=== PATIENT | female | born 1930 | race Caucasian/White ===

== ENCOUNTER → 2017-12-12 | Outpatient (CLI) | payer MEDICARE, OTHER ==
--- NOTE | 2017-12-12 12:52 | CT ---
EXAMINATION TYPE: CT chest wo con DATE OF EXAM: 12/12/2017 COMPARISON: 03/19/2016 HISTORY: pulmonary fibrosis, weight loss CT DLP: 86.8 mGycm. Automated Exposure Control for Dose Reduction was Utilized. TECHNIQUE: CT scan of the thorax is performed without IV contrast. The patient could not tolerate pr one position and only a supine high resolution CT performed. FINDINGS: LUNGS: There is diffuse interlobular septal thickening. Extensive emphysematous changes are seen with large bulla involving the periphery of the right upper lobe occupying the majority of the right lowe r lobe and middle lobe compatible honeycombing. Similar findings are noted on the left but to a lesse r extent The heart is markedly enlarged. Atherosclerotic change of the aorta. Tiny pericardial effusion noted. Large hiatal hernia noted. There is a scoliosis and multilevel degenerative disc disease with facet arthropathy. No pneumothorax. There is a 3 cm area of abnormal density within the left lower lobe axial image 19. There are at least 3 less than 5 mm nodules within the left lung. There is enlarged caliber to the main right and left pulmonary arteries at 2.8 and 2.5 cm, respective ly, suggesting underlying pulmonary arterial hypertension. There is a calcified density in the left upper quadrant which is only partially included on exam demo nstrating rim calcification could potentially be related to spleen or splenic artery.. Assessment for adenopathy limited by the lack of contrast and high-resolution technique. IMPRESSION: 1. Extensive honeycombing findings suggestive of advanced pulmonary fibrosis and chronic lung disease findings are progressed from previous exam. 2. There is a 3 cm irregular density seen within the left lower lobe on axial image 19. Would recomme nd a standard CT of the chest to determine if this is related infiltrate or neoplasm. 3. 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
== END | disposition home or self-care (01) ==
LOC: RADCTMAIN 11:58
PROVIDERS: ATTEND Internal Medicine
DX: J98.4 Other disorders of lung (principal)
CPT/HCPCS: 71250

== ENCOUNTER 2018-01-14 12:54 | Inpatient (IN) | payer MEDICARE, OTHER ==
[2018-01-14 14:00] LABS: Basophils % (A) 0 %; Eosinophils % (A) 0 %; HCT 48.6 % (34.0-46.0); HGB 15.8 gm/dL (11.4-16.0); Lymphocytes # (A) 0.7 k/uL (1.0-4.8); Lymphocytes % (A) 7 %; MCH 30.2 pg (25.0-35.0); MCHC 32.6 g/dL (31.0-37.0); MCV 92.7 fL (80.0-100.0); Mean Platelet Volume 7.5; Monocytes # (A) 0.4 k/uL (0-1.0); Monocytes % (A) 5 %; Neutrophils # (A) 8.4 k/uL (1.3-7.7); Neutrophils % (A) 87 %; Platelet Count 232 k/uL (150-450); RBC 5.24 m/uL (3.80-5.40); RDW 13.1 % (11.5-15.5); WBC 9.6 k/uL (3.8-10.6)
[2018-01-14 14:10] LABS: Albumin 3.9 g/dL (3.5-5.0); Calcium 10.3 mg/dL (8.4-10.2); Magnesium 2.2 mg/dL (1.6-2.3); Potassium 4.4 mmol/L (3.5-5.1); Total Bilirubin 0.4 mg/dL (0.2-1.3); Total Protein 8.3 g/dL (6.3-8.2)
[2018-01-14 14:23] LABS: Partial Thromboplastin Time 22.4 sec (22.0-30.0); Prothrombin Time 10.2 sec (9.0-12.0)
--- NOTE | 2018-01-14 14:33 | XR ---
EXAMINATION TYPE: XR chest 2V DATE OF EXAM: 01/14/2018 COMPARISON: CT 12/12/2017 and 03/19/2016 HISTORY: 79-year-old female with chest pain and shortness of breath, history of end-stage pulmonary f ibrosis TECHNIQUE: AP and lateral views FINDINGS: Dextro convex scoliosis. Heart margins are obscured by adjacent pleural parenchymal disease. Severe c onfluent reticular densities throughout the right lung and within the mid to lower left lung aerated overall appearance is worsened from the surveying or spatial science technician image of 03/19/2016 and similar to possibly slightly wor sened from 12/12/2017 as well. Retrocardiac lucency suggests large hiatal hernia. IMPRESSION: 1. Findings in keeping with the patient's known advanced pulmonary fibrosis, asymmetrically right gre ater than left. 2. Findings have progressed from 03/19/2016 and are stable to slightly progressed from 12/12/2017.
[2018-01-14] MEDS ORDERED: NALOXONE 0.4 MG/ML 1 ML VIAL IV PRN ×2 (15:18→21:49)
--- NOTE | 2018-01-14 15:18 | ED ---
Weakness HPI - General Chief complaint: Weakness Stated complaint: SOB Time Seen by Provider: 01/14/18 13:04 Source: patient Mode of arrival: wheelchair Limitations: physical limitation - History of Present Illness Initial comments: Patient presents with weakness. She has shortness of breath. She has end- stage cystic fibrosis. She denies any nausea or vomiting. She has no chest pain or pressure. She has no headache. She has no focal weakness. Nothing makes her symptoms better or worse. She has taken no medication for this. She does not have any recent travel or sick contacts. - Related Data Home Medications Medication Instructions Recorded Confirmed Calcium Carbonate [Calcium] 600 mg PO DAILY 01/14/18 01/14/18 Cholecalciferol [Vitamin D3] 1,000 unit PO DAILY 01/14/18 01/14/18 L.acidoph,Paracasei, B.lactis 1 cap PO Q48H 01/14/18 01/14/18 [Probiotic] Levothyroxine Sodium [Levoxyl] 100 mcg PO DAILY 01/14/18 01/14/18 Magnesium Oxide [Mag-Ox] 400 mg PO AC-SUPPER 01/14/18 01/14/18 Megestrol [Megace] 400 mg PO DAILY@1200 01/14/18 01/14/18 Menthol/Zinc Oxide [Calmoseptine 1 applic TOPICAL QID 01/14/18 01/14/18 Ointment] N-Ac 600mg 600 mg PO TID 01/14/18 01/14/18 Naproxen Sodium [Aleve] 220 mg PO BID PRN 01/14/18 01/14/18 Pulocare Diet Supplement 180 ml PO AC-TID 01/14/18 01/14/18 cycloSPORINE 0.05% OPHTH SOLN 1 drop BOTH EYES BID 01/14/18 01/14/18 [Restasis] predniSONE 10 mg PO DAILY 01/14/18 01/14/18 Allergies Allergy/AdvReac Type Severity Reaction Status Date / Time latex Allergy Rash/Hives Verified 01/14/18 14:05 nickel Allergy Rash/Hives Verified 01/14/18 14:05 Penicillins Allergy Rash/Hives Verified 01/14/18 13:58 Review of Systems ROS Statement: Those systems with pertinent positive or pertinent negative responses have been documented in the HPI. ROS Other: All systems not noted in ROS Statement are negative. 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 dughter staets that pt's doctor took her off of her bp, cholestrol, and potassium and water pill History of Any Multi-Drug Resistant Organisms: None Reported Past Surgical History: Heart Catheterization With Stent, Hysterectomy, Joint Replacement Additional Past Surgical History / Comment(s): partial throidectomy Past Psychological History: No Psychological Hx Reported Past Alcohol Use History: None Reported Past Drug Use History: None Reported General Exam Limitations: physical limitation General appearance: alert, in no apparent distress Head exam: Present: atraumatic, normocephalic, normal inspection Eye exam: Present: normal appearance, PERRL, EOMI. Absent: scleral icterus, conjunctival injection, periorbital swelling ENT exam: Present: normal exam, mucous membranes moist Neck exam: Present: normal inspection. Absent: tenderness, meningismus, lymphadenopathy Respiratory exam: Present: respiratory distress, wheezes. Absent: rales, rhonchi, stridor Cardiovascular Exam: Present: regular rate, normal rhythm, normal heart sounds. Absent: systolic murmur, diastolic murmur, rubs, gallop, clicks GI/Abdominal exam: Present: soft, normal bowel sounds. Absent: distended, tenderness, guarding, rebound, rigid Extremities exam: Present: normal inspection, full ROM, normal capillary refill. Absent: tenderness, pedal edema, joint swelling, calf tenderness Back exam: Present: normal inspection Neurological exam: Present: alert, oriented X3, CN II-XII intact Psychiatric exam: Present: normal affect, normal mood Skin exam: Present: warm, dry, intact, normal color. Absent: rash Course Vital Signs 01/14/18 01/14/18 01/14/18 12:54 14:10 14:52 Temperature 97.2 F L Pulse Rate 102 H 92 96 Respiratory 25 H 22 24 Rate Blood Pressure 154/104 123/75 138/83 O2 Sat by Pulse 100 99 99 Oximetry EKG Findings - EKG Comments: EKG Findings:: Twelve-lead EKG shows ventricular rate 99 bpm, normal [place] interval and QRS complex is, no ST elevation or depression, interpreted by me as normal sinus rhythm. Medical Decision Making - Medical Decision Making Patient complains of shortness of breath. She has end-stage cystic fibrosis. She cannot take care of herself. She is severely malnourished. She will be admitted to the hospital. - Lab Data Result diagrams: 01/14/18 13:25 01/14/18 13:25 Lab Results 01/14/18 01/14/18 01/14/18 Range/Units 13:25 13:25 13:25 WBC 9.6 (3.8-10.6) k/uL RBC 5.24 (3.80-5.40) m/uL Hgb 15.8 (11.4-16.0) gm/dL Hct 48.6 H (34.0-46.0) % MCV 92.7 (80.0-100.0) fL MCH 30.2 (25.0-35.0) pg MCHC 32.6 (31.0-37.0) g/dL RDW 13.1 (11.5-15.5) % Plt Count 232 (150-450) k/uL Neutrophils % 87 % Lymphocytes % 7 % Monocytes % 5 % Eosinophils % 0 % Basophils % 0 % Neutrophils # 8.4 H (1.3-7.7) k/uL Lymphocytes # 0.7 L (1.0-4.8) k/uL Monocytes # 0.4 (0-1.0) k/uL Eosinophils # 0.0 (0-0.7) k/uL Basophils # 0.0 (0-0.2) k/uL PT (9.0-12.0) sec INR (<1.2) APTT (22.0-30.0) sec Sodium 141 (137-145) mmol/L Potassium 4.4 (3.5-5.1) mmol/L Chloride 96 L (98-107) mmol/L Carbon Dioxide 33 H (22-30) mmol/L Anion Gap 12 mmol/L BUN 46 H (7-17) mg/dL Creatinine 0.84 (0.52-1.04) mg/dL Est GFR (CKD-EPI)AfAm 72 (>60 ml/min/1.73 sqM) Est GFR (CKD-EPI)NonAf 62 (>60 ml/min/1.73 sqM) Glucose 132 H (74-99) mg/dL Calcium 10.3 H (8.4-10.2) mg/dL Magnesium 2.2 (1.6-2.3) mg/dL Total Bilirubin 0.4 (0.2-1.3) mg/dL AST 28 (14-36) U/L ALT 26 (9-52) U/L Alkaline Phosphatase 83 (38-126) U/L Troponin I (0.000-0.034) ng/mL NT-Pro-B Natriuret Pep 1110 pg/mL Total Protein 8.3 H (6.3-8.2) g/dL Albumin 3.9 (3.5-5.0) g/dL 01/14/18 01/14/18 Range/Units 13:25 13:25 WBC (3.8-10.6) k/uL RBC (3.80-5.40) m/uL Hgb (11.4-16.0) gm/dL Hct (34.0-46.0) % MCV (80.0-100.0) fL MCH (25.0-35.0) pg MCHC (31.0-37.0) g/dL RDW (11.5-15.5) % Plt Count (150-450) k/uL Neutrophils % % Lymphocytes % % Monocytes % % Eosinophils % % Basophils % % Neutrophils # (1.3-7.7) k/uL Lymphocytes # (1.0-4.8) k/uL Monocytes # (0-1.0) k/uL Eosinophils # (0-0.7) k/uL Basophils # (0-0.2) k/uL PT 10.2 (9.0-12.0) sec INR 1.0 (<1.2) APTT 22.4 (22.0-30.0) sec Sodium (137-145) mmol/L Potassium (3.5-5.1) mmol/L Chloride (98-107) mmol/L Carbon Dioxide (22-30) mmol/L Anion Gap mmol/L BUN (7-17) mg/dL Creatinine (0.52-1.04) mg/dL Est GFR (CKD-EPI)AfAm (>60 ml/min/1.73 sqM) Est GFR (CKD-EPI)NonAf (>60 ml/min/1.73 sqM) Glucose (74-99) mg/dL Calcium (8.4-10.2) mg/dL Magnesium (1.6-2.3) mg/dL Total Bilirubin (0.2-1.3) mg/dL AST (14-36) U/L ALT (9-52) U/L Alkaline Phosphatase (38-126) U/L Troponin I 0.039 H* (0.000-0.034) ng/mL NT-Pro-B Natriuret Pep pg/mL Total Protein (6.3-8.2) g/dL Albumin (3.5-5.0) g/dL Disposition Clinical Impression: Weakness Disposition: ADMITTED IP TO THIS HOSP Condition: Fair Is patient prescribed a controlled substance at discharge?: No Referrals: Jorgito Martin MD [Primary Care Provider] - 1-2 days Time of Disposition: 15:18
[2018-01-14] MEDS: MAGNESIUM OXIDE 400 MG TAB PO SCH (18:52)
[2018-01-14] MEDS: cycloSPORINE 0.05% OPHTH 0.4 ML DROPERETTE BOTH EYES SCH (21:33)
[2018-01-14] MEDS ORDERED: CALCIUM CARBONATE 500 MG CHEWABLE PO PRN (21:49)
[2018-01-14] MEDS ORDERED: ONDANSETRON 4 MG/2 ML VIAL IVP PRN (21:49)
[2018-01-14] MEDS ORDERED: ALPRAZolam 0.25 MG TAB PO PRN (21:49)
[2018-01-14] MEDS ORDERED: MELATONIN 3 MG TABLET PO PRN (21:49)
[2018-01-14] MEDS ORDERED: ACETAMINOPHEN TAB 325 MG TAB PO PRN (21:49)
[2018-01-14] MEDS ORDERED: MAG HYDROX/AL HYDROX/SIMETH 30 ML CUP PO PRN (21:49)
[2018-01-14] MEDS ORDERED: IPRATROPIUM-ALBUTEROL 3 ML NEB INHALATION PRN (22:29)
--- NOTE | 2018-01-14 23:15 | HP ---
HISTORY AND PHYSICAL DATE OF ADMISSION: January 14, 2018. PRESENTING COMPLAINT: Short of breath. HISTORY OF PRESENTING COMPLAINT: A very pleasant 87-year-old patient of Dr. Martin and food sampler Dr. Zhu. Chronic stable medical conditions include hypertension, hyperlipidemia, osteoarthritis, coronary artery disease. Patient on home oxygen 4 L. Has pulmonary fibrosis. Over a period of time, patient progressively getting more and more short of breath. Minimal cough. No fever, chills. Appetite has been going down. Patient has lost about 50 pounds in the last 2 years. Uses a walker to get about. Exercise capacity is dwindling and gone down to bare minimum. Patient short of breath at rest, cannot speak in full sentences. Now admitted for the same. The patient's also admitted to the hospital. REVIEW OF SYSTEMS: Constitutional: Weak and tired, loss of appetite. Weight loss. HEENT: Decreased hearing. Respiratory as above. Cardiovascular: No chest pain. Gastrointestinal none. Genitourinary none. Musculoskeletal: Arthritic pain in many joints. Dermatological none. Hematologic, lymphatic none. Psychiatry anxiety. Neurological none. PAST MEDICAL HISTORY: Of hypertension, hyperlipidemia, osteoarthritis, pulmonary fibrosis, coronary artery disease, chronic hypoxic respiratory failure on home oxygen 4 L, osteoporosis. PAST SURGICAL HISTORY: Cardiac cath with stent, hysterectomy, joint replacement, bilateral partial thyroidectomy. SOCIAL HISTORY: No smoking, no alcohol. . Lives with her . FAMILY HISTORY: Reviewed, noncontributory to presentation. HOME MEDICATIONS: 1. Prednisone 10 mg p.o. daily. 2. Cyclosporine 0.05% 1 drop to both eyes b.i.d. 3. Pulmocare 3 times a day. 4. Aleve 220 mg b.i.d. p.r.n. 5. Calmoseptine topical q.i.d. 6. Megace 400 mg p.o. daily. 7. Magnesium oxide 400 mg p.o. with supper. 8. Levoxyl 100 mcg p.o. daily. 9. Probiotic 1 capsule p.o. q.48 hours. 10.Vitamin D3 1000 units p.o. daily. 11.Calcium 600 mg p.o. daily. ALLERGIES: TO LATEX, NICKEL, PENICILLIN. PHYSICAL EXAMINATION: Temperature 98, pulse 101, respiration 22, blood pressure 120/76, pulse ox 95% on 2 L. General: Very thin built, BMI 17.6. Sitting up, short of breath. Eyes: Conjunctivae pale. HEENT external appearance of nose and ears normal. Oral cavity normal. Neck JVD unable to assess. Mass not palpable. Respiratory effort increased. Accessory muscles are working. Patient not able to speak in full sentences. Lungs: Bilateral crackles. Diminished breath sounds. Cardiovascular 1st and second sounds normal. No edema. ABDOMEN: Soft, nontender. Liver and spleen not palpable. Lymphatics: No lymph node palpable in the neck and axilla. PSYCHIATRY: Alert and oriented times three. Mood and affect anxious-appearing. Neurological: Pupils equal. Cranial nerves grossly intact. Power and sensation grossly intact. Musculoskeletal: Diffuse wasting of muscles. Prominent bony prominences. INVESTIGATIONS: White count 9.6, hemoglobin 15.8, potassium 4.4, BUN 46, creatinine 0.84. Troponin 0.039, 0.030. Chest x-ray shows severe pulmonary fibrosis, more so on the right side with severe volume contracture. ASSESSMENT: 1. Acute on chronic examination of pulmonary fibrosis. 2. Chronic hypoxic respiratory failure from above. 3. Coronary artery disease prior history of stent. 4. Primary osteoarthritis multiple joints bilaterally. 5. Essential hypertension. 6. Hyperlipidemia. 7. Frailty due to multiple medical problems. 8. Troponin leak, likely from hemodynamic, the patient's presentation not compatible that with Cardiology presentation. PLAN: Patient is put on IV steroids, bronchodilators. Home medications are resumed. PT/OT. moving worker is consulted. The patient's CODE STATUS IS DNR. ADVANCED CARE PLANNING: The patient's end of life care was discussed with the patient. She understands her condition is progressive and she has been talking to her family. At this point, she wants to see if she can get a bit stronger. She understands the guarded prognosis. The patient's currently in the hospital. Will ask social worker psychiatric this aspect of the case was about 20 minutes in addition to the history and physical. MMODL / IJN: [id number] /
[2018-01-14] MEDS: methylPREDNISolone SOD SUCCI 40 MG/ML 1 ML VIAL IV SCH (23:19)
[2018-01-14] MEDS: MENTHOL-ZINC OXIDE OINT 113 GM TUBE TOPICAL SCH (23:19)
[2018-01-15] MEDS ORDERED: IPRATROPIUM-ALBUTEROL 3 ML NEB INHALATION SCH
[2018-01-15] MEDS: LEVOTHYROXINE 100 MCG TAB PO SCH (06:07)
[2018-01-15 06:09] LABS: Glucose,Whole Blood 139 mg/dL (75-99)
[2018-01-15] MEDS: IPRATROPIUM-ALBUTEROL 3 ML NEB INHALATION SCH ×4 (08:16→19:38)
[2018-01-15] MEDS ORDERED: predniSONE 10 MG TAB PO SCH (09:00)
[2018-01-15] MEDS: methylPREDNISolone SOD SUCCI 40 MG/ML 1 ML VIAL IV SCH ×2 (09:03→15:22)
[2018-01-15] MEDS: ENOXAPARIN 40 MG/0.4 ML SYRINGE SQ SCH (09:03)
[2018-01-15] MEDS: cycloSPORINE 0.05% OPHTH 0.4 ML DROPERETTE BOTH EYES SCH ×2 (09:04→20:37)
[2018-01-15] MEDS: MENTHOL-ZINC OXIDE OINT 113 GM TUBE TOPICAL SCH ×3 (09:04→17:56)
[2018-01-15 11:35] VITALS: BMI 17.4
[2018-01-15 12:01] LABS: Glucose,Whole Blood 350 mg/dL (75-99)
--- NOTE | 2018-01-15 12:42 | P.CRDCN ---
History of Present Illness Consult date: 01/15/18 Requesting physician: Pk Toro Reason for Consult (text): positive troponin Chief complaint: weakness, shortness of breath History of present illness: This is a pleasant 87-year-old female patient who follows with Dr. Brito in the office. She has a known history of coronary artery disease with prior stent placement in 2008, hypertension, hyperlipidemia and end-stage pulmonary fibrosis. She presented to the emergency department with complaints of overall not feeling well, weakness and shortness of breath. She is feeling it difficult to take care of herself at home and her activity level has diminished significantly. Upon admission, chest x-ray showed findings consistent with patient's known advanced pulmonary fibrosis with the right greater than left with findings stable to slightly progressed from 12/12/2017. Laboratory values showed a troponin initially to be mildly elevated at 0.039 with subsequent troponins of 0.030 and 0.032. NT proBNP is normal at 1110. Upon examination, patient is resting comfortably in bed. She is visibly short of breath with talking. She's had no complaints of chest discomfort, palpitations, dizziness, lightheadedness or edema. 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 dughter staets that pt's doctor took her off of her bp, cholestrol, and potassium and water pill, hx of anemia in past took iron supplement.scoliosis. lower bridge, per previous charting it listed chf- pt unable to verify History of Any Multi-Drug Resistant Organisms: None Reported Past Surgical History: Heart Catheterization With Stent, Hysterectomy, Joint Replacement Additional Past Surgical History / Comment(s): partial throidectomy, vein stripping, rectocele repair, partial hysterectomy, rt knee replacment, rt shoulder arthroscopy/tendon repair, terra cataracts, colonoscopy/egd, Past Anesthesia/Blood Transfusion Reactions: No Reported Reaction Date of Last Stent Placement:: unk Past Psychological History: No Psychological Hx Reported Additional Psychological History / Comment(s): lives wih spouse. has home 02, walker, w/c able to walk with walker and assist very short distance. pt gave example "from bed to bs" Smoking Status: Never smoker Past Alcohol Use History: None Reported Past Drug Use History: None Reported - Past Family History Mother Family Medical History: Cancer, Osteoarthritis (OA) Additional Family Medical History / Comment(s): kidney cancer Father Family Medical History: Osteoarthritis (OA) Medications and Allergies Home Medications Medication Instructions Recorded Confirmed Type Calcium Carbonate [Calcium] 600 mg PO DAILY 01/14/18 01/14/18 History Cholecalciferol [Vitamin D3] 1,000 unit PO DAILY 01/14/18 01/14/18 History L.acidoph,Paracasei, B.lactis 1 cap PO Q48H 01/14/18 01/14/18 History [Probiotic] Levothyroxine Sodium [Levoxyl] 100 mcg PO DAILY 01/14/18 01/14/18 History Magnesium Oxide [Mag-Ox] 400 mg PO AC-SUPPER 01/14/18 01/14/18 History Megestrol [Megace] 400 mg PO DAILY@1200 01/14/18 01/14/18 History Menthol/Zinc Oxide [Calmoseptine 1 applic TOPICAL QID 01/14/18 01/14/18 History Ointment] N-Ac 600mg 600 mg PO TID 01/14/18 01/14/18 History Naproxen Sodium [Aleve] 220 mg PO BID PRN 01/14/18 01/14/18 History Pulocare Diet Supplement 180 ml PO AC-TID 01/14/18 01/14/18 History cycloSPORINE 0.05% OPHTH SOLN 1 drop BOTH EYES BID 01/14/18 01/14/18 History [Restasis] predniSONE 10 mg PO DAILY 01/14/18 01/14/18 History Allergies Allergy/AdvReac Type Severity Reaction Status Date / Time latex Allergy Rash/Hives Verified 01/14/18 14:05 nickel Allergy Rash/Hives Verified 01/14/18 14:05 Penicillins Allergy Rash/Hives Verified 01/14/18 13:58 Physical Exam Vitals: Vital Signs Temp Pulse Pulse Resp BP BP Pulse Ox 01/15/18 12:13 92 01/15/18 12:04 96 01/15/18 09:10 104 H 20 01/15/18 09:09 97.5 F L 104 H 14 89/57 96 01/15/18 08:29 100 01/15/18 08:20 94 93 L 01/15/18 04:00 96.6 F L 77 20 118/75 97 01/15/18 00:00 96.9 F L 82 22 113/72 98 01/14/18 20:00 98.4 F 92 22 120/62 97 01/14/18 18:07 98.0 F 111 H 22 126/76 95 01/14/18 17:16 96.9 F L 98 19 116/70 97 01/14/18 16:17 99 18 133/70 99 01/14/18 14:52 96 24 138/83 99 01/14/18 14:10 92 22 123/75 99 01/14/18 12:54 97.2 F L 102 H 25 H 154/104 100 Intake and Output 01/14/18 01/15/18 01/15/18 22:59 06:59 14:59 Intake Total 340 360 Output Total 200 200 Balance 140 -200 360 Intake: Oral 340 360 Output: Urine 200 200 Other: Voiding Method Diaper Diaper Diaper Incontinent Incontinent Incontinent # Voids 1 1 Weight 89.5 kg 40.597 kg PHYSICAL EXAMINATION: HEENT: Head is atraumatic, normocephalic. Pupils equal, round. Neck is supple. There is no elevated jugular venous pressure. HEART EXAMINATION: Heart sounds regular, S1 and S2 normal. No murmur or gallop heard. CHEST EXAMINATION: Lungs reveal significant dry crackles throughout. No chest wall tenderness is noted on palpation or with deep breathing. ABDOMEN: Soft, nontender. Bowel sounds are heard. No organomegaly noted. EXTREMITIES: 2+ peripheral pulses with no evidence of peripheral edema and no calf tenderness noted. NEUROLOGIC patient is awake, alert and oriented x3. . Results 01/14/18 13:25 01/14/18 13:25 Cardiac Enzymes 01/14/18 01/14/18 01/14/18 Range/Units 13:25 13:25 19:48 AST 28 (14-36) U/L Troponin I 0.039 H* 0.030 (0.000-0.034) ng/mL 01/15/18 Range/Units 01:24 AST (14-36) U/L Troponin I 0.032 (0.000-0.034) ng/mL Coagulation 01/14/18 Range/Units 13:25 PT 10.2 (9.0-12.0) sec APTT 22.4 (22.0-30.0) sec CBC 01/14/18 Range/Units 13:25 WBC 9.6 (3.8-10.6) k/uL RBC 5.24 (3.80-5.40) m/uL Hgb 15.8 (11.4-16.0) gm/dL Hct 48.6 H (34.0-46.0) % Plt Count 232 (150-450) k/uL Comprehensive Metabolic Panel 01/14/18 Range/Units 13:25 Sodium 141 (137-145) mmol/L Potassium 4.4 (3.5-5.1) mmol/L Chloride 96 L (98-107) mmol/L Carbon Dioxide 33 H (22-30) mmol/L BUN 46 H (7-17) mg/dL Creatinine 0.84 (0.52-1.04) mg/dL Glucose 132 H (74-99) mg/dL Calcium 10.3 H (8.4-10.2) mg/dL AST 28 (14-36) U/L ALT 26 (9-52) U/L Alkaline Phosphatase 83 (38-126) U/L Total Protein 8.3 H (6.3-8.2) g/dL Albumin 3.9 (3.5-5.0) g/dL Current Medications Generic Name Dose Route Start Last Admin Trade Name Freq PRN Reason Stop Dose Admin Acetaminophen 650 mg 01/14/18 21:49 Tylenol Tab PO Q6HR PRN Mild Pain or Fever > 100.5 Al Hydroxide/Mg Hydroxide 15 ml 01/14/18 21:49 Maalox PO Q6HR PRN Indigestion Albuterol/Ipratropium 3 ml 01/15/18 08:00 01/15/18 12:02 Duoneb 0.5 Mg-3 Mg/3 Ml Soln INHALATION 3 ml RT-QID EVAN Administration Albuterol/Ipratropium 3 ml 01/14/18 22:29 Duoneb 0.5 Mg-3 Mg/3 Ml Soln INHALATION RT-Q2H PRN Shortness Of Breath Or Wheezing Alprazolam 0.25 mg 01/14/18 21:49 Xanax PO Q6HR PRN Anxiety Calamine/Phenol 1 applic 01/14/18 22:00 01/15/18 09:04 Risamine Oint TOPICAL 1 applic QID [facility] Administration Calcium Carbonate/Glycine 1,000 mg 01/14/18 21:49 Tums PO Q4HR PRN Dyspepsia Cyclosporine 1 drops 01/14/18 21:00 01/15/18 09:04 Restasis 0.05% Ophth Soln BOTH EYES 1 drops BID [facility] Administration Enoxaparin Sodium 40 mg 01/15/18 09:00 01/15/18 09:03 Lovenox SQ 40 mg DAILY EVAN Administration Insulin Aspart 0 unit 01/15/18 12:30 Novolog SQ ACHS [facility] Protocol Levothyroxine Sodium 100 mcg 01/15/18 06:30 01/15/18 06:07 Synthroid PO 100 mcg 0630 [facility] Administration Magnesium Oxide 400 mg 01/14/18 17:30 01/14/18 18:52 Mag-Ox PO 400 mg AC-SUPPER [facility] Administration Megestrol Acetate 400 mg 01/15/18 12:00 Megace PO DAILY@1200 [facility] Melatonin 3 mg 01/14/18 21:49 Melatonin PO HS PRN Insomnia Methylprednisolone Sodium Succinate 40 mg 01/14/18 22:00 01/15/18 09:03 Solu-Medrol IV 40 mg Q8HR [facility] Administration Naloxone HCl 0.2 mg 01/14/18 21:49 Narcan IV Q2M PRN Opioid Reversal Ondansetron HCl 4 mg 01/14/18 21:49 Zofran IVP Q8HR PRN Nausea And Vomiting Intake and Output 01/14/18 01/15/18 01/15/18 22:59 06:59 14:59 Intake Total 340 360 Output Total 200 200 Balance 140 -200 360 Intake: Oral 340 360 Output: Urine 200 200 Other: Voiding Method Diaper Diaper Diaper Incontinent Incontinent Incontinent # Voids 1 1 Weight 89.5 kg 40.597 kg Patient Weight 01/16/18 06:59 Weight 40.597 kg 01/14/18 13:25 01/14/18 13:25 Assessment and Plan Assessment: #1 pulmonary fibrosis #2 history of CAD with prior stenting #3 hypertension #4 hyperlipidemia #5 mild troponin leak, not consistent with acute myocardial injury Plan: From Cardiology's perspective, we do not recommend further cardiac workup. We will follow the patient on an as-needed basis. Please do not hesitate to contact us with questions. PROFESSOR OF SOCIOLOGY note has been reviewed, I agree with a documented findings and plan of care. Patient was seen and examined.
[2018-01-15] MEDS: MEGESTROL 400 MG/10 ML CUP PO SCH (12:48)
[2018-01-15] MEDS: INSULIN ASPART 100 UNIT/ML 1 ML 10 ML VIAL SQ SCH ×3 (12:51→21:16)
--- NOTE | 2018-01-15 12:53 | P.PN ---
Progress Note - Text This is an addendum to the dictated cardiology consultation. The patient has a known history of severe pulmonary fibrosis, history of CAD status post stenting in 2008 who presents with progressive symptoms of dyspnea and fatigue. She has no chest discomfort, no dizziness or palpitations. Her lab data revealed minimal elevation of her troponin but no EKG changes. Her troponin elevation of her present a type II event. From the cardiac standpoint she is stable and I would not recommend any cardiac workup. Unfortunately the prognosis is quite guarded in view of the severe progressive pulmonary fibrosis we will see her on an as needed basis. Thank you for this consult.
--- NOTE | 2018-01-15 13:25 | P.CNPUL ---
History of Present Illness Consult date: 01/15/18 Reason for consult: dyspnea, hypoxemia, other (Pulmonary fibrosis) History of present illness: This is an 85-year-old female patient with known history of severe pulmonary fibrosis, UIP, treated with Pirfenedone, who has been developing progressive worsening in her pulmonary fibrosis and this was clear noted on recent evaluation recent CAT scan of the chest. The patient has UIP histology along with chronic honeycombing and traction bronchiectasis. She also has a hiatal hernia noted on previous CAT scans. The patient has been followed up in our office on a care of Dr. Darden. She has chronic hypoxic respiratory failure and oxygen requirements progressively have been going up and she is currently on 4 of oxygen nasal cannula. The patient was getting progressive shortness of breath or point where she was unable to perform activities of daily life. She lives with her children and her is currently also ill. She was also being considered for half-way placement knowing that she is at a condition where she cannot perform activities of daily today life without any help or assistance. She gets short of breath with limited amount of activity. She is also short of breath at rest. She has been losing weight and she recently she has lost approximately 12-15 pounds over the past 6 months. She has not been eating much. She continues to have shortness of breath and she is very much oxygen dependent. She is also on a low-dose prednisone 10 mg on a daily basis. No recent pneumonias. No altered mentation. No angina. No swelling lower extremities. CAT scan of the chest from November 2017 shows extensive honeycombing suggestive of advanced pulmonary fibrosis with chronic lung disease showing progression from the last examination. Review of Systems Constitutional: Reports daytime sleepiness, Reports fatigue, Reports lethargy, Reports poor appetite, Reports weakness, Reports weight loss Eyes: denies blurred vision, denies bulging eye, denies decreased vision Ears: deny: decreased hearing, ear discharge, earache Ears, nose, mouth and throat: Denies headache, Denies sore throat Cardiovascular: Reports decreased exercise tolerance, Reports dyspnea on exertion, Reports shortness of breath Respiratory: Reports cough, Reports dyspnea, Reports home oxygen Gastrointestinal: Reports loss of appetite Genitourinary: Denies dysuria, Denies hematuria Menstruation: Reports as per HPI Musculoskeletal: Denies myalgias Musculoskeletal: absent: ankle pain, ankle stiffness, ankle swelling Neurological: Reports weakness Psychiatric: Denies anxiety, Denies depression Endocrine: Reports fatigue Past Medical History Past Medical History: Heart Failure, Hyperlipidemia, Hypertension, Osteoarthritis (OA), Thyroid Disorder Additional Past Medical History / Comment(s): endstage pulmonary fibrosis,home 02 3.5-4 liters n/c, leakage of urine, 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 Hypertension. The patient was taken off the blood pressure medication, hyperlipidemia, chronic anemia, scoliosis, iron deficiency , congestion heart failure, hypothyroidism, hypertension, acid reflux, chronic hypoxic respiratory failure History of Any Multi-Drug Resistant Organisms: None Reported Past Surgical History: Heart Catheterization With Stent, Hysterectomy, Joint Replacement Additional Past Surgical History / Comment(s): partial throidectomy, vein stripping, rectocele repair, partial hysterectomy, rt knee replacment, rt shoulder arthroscopy/tendon repair, terra cataracts, colonoscopy/egd, Past Anesthesia/Blood Transfusion Reactions: No Reported Reaction Date of Last Stent Placement:: unk Past Psychological History: No Psychological Hx Reported Additional Psychological History / Comment(s): lives wih spouse. has home 02, walker, w/c able to walk with walker and assist very short distance. pt gave example "from bed to bsc" Smoking Status: Never smoker Past Alcohol Use History: None Reported Past Drug Use History: None Reported - Past Family History Mother Family Medical History: Cancer, Osteoarthritis (OA) Additional Family Medical History / Comment(s): kidney cancer Father Family Medical History: Osteoarthritis (OA) Medications and Allergies Home Medications Medication Instructions Recorded Confirmed Type Calcium Carbonate [Calcium] 600 mg PO DAILY 01/14/18 01/14/18 History Cholecalciferol [Vitamin D3] 1,000 unit PO DAILY 01/14/18 01/14/18 History L.acidoph,Paracasei, B.lactis 1 cap PO Q48H 01/14/18 01/14/18 History [Probiotic] Levothyroxine Sodium [Levoxyl] 100 mcg PO DAILY 01/14/18 01/14/18 History Magnesium Oxide [Mag-Ox] 400 mg PO AC-SUPPER 01/14/18 01/14/18 History Megestrol [Megace] 400 mg PO DAILY@1200 01/14/18 01/14/18 History Menthol/Zinc Oxide [Calmoseptine 1 applic TOPICAL QID 01/14/18 01/14/18 History Ointment] N-Ac 600mg 600 mg PO TID 01/14/18 01/14/18 History Naproxen Sodium [Aleve] 220 mg PO BID PRN 01/14/18 01/14/18 History Pulocare Diet Supplement 180 ml PO AC-TID 01/14/18 01/14/18 History cycloSPORINE 0.05% OPHTH SOLN 1 drop BOTH EYES BID 01/14/18 01/14/18 History [Restasis] predniSONE 10 mg PO DAILY 01/14/18 01/14/18 History Allergies Allergy/AdvReac Type Severity Reaction Status Date / Time latex Allergy Rash/Hives Verified 01/14/18 14:05 nickel Allergy Rash/Hives Verified 01/14/18 14:05 Penicillins Allergy Rash/Hives Verified 01/14/18 13:58 Physical Exam Vitals: Vital Signs Temp Pulse Pulse Resp BP BP Pulse Ox 01/15/18 12:13 92 01/15/18 12:04 96 01/15/18 12:00 104 H 20 01/15/18 09:10 104 H 20 01/15/18 09:09 97.5 F L 104 H 14 89/57 96 01/15/18 08:29 100 01/15/18 08:20 94 93 L 01/15/18 04:00 96.6 F L 77 20 118/75 97 01/15/18 00:00 96.9 F L 82 22 113/72 98 01/14/18 20:00 98.4 F 92 22 120/62 97 01/14/18 18:07 98.0 F 111 H 22 126/76 95 01/14/18 17:16 96.9 F L 98 19 116/70 97 01/14/18 16:17 99 18 133/70 99 01/14/18 14:52 96 24 138/83 99 01/14/18 14:10 92 22 123/75 99 Intake and Output 01/14/18 01/15/18 01/15/18 22:59 06:59 14:59 Intake Total 340 360 Output Total 200 200 Balance 140 -200 360 Intake: Oral 340 360 Output: Urine 200 200 Other: Voiding Method Diaper Diaper Diaper Incontinent Incontinent Incontinent # Voids 1 1 Weight 89.5 kg 40.597 kg Physical examination revealed an 87-year-old female, frail looking, in mild respiratory distress. She looks very frail and cachectic and weak and she has significant loss in total body protein mass HEENT: Anicteric sclerae, pink and moist conjunctivae. Extraocular movements intact, pupils are reactive to light they are round and equal. External inspection of ears and nose showed normal mucosa. Oral mucosa, soft and hard palate tongue and posterior pharynx are intact. Neck: Supple no neck masses, no JVD, no thyroid enlargement, no adenopathy. Lungs: Symmetrical expansion, Velcro rales and crackles at the bases CVS: Regular rate and rhythm, normal S1 and S2, no gallops, no murmur, no rubs. Abdomen: Soft, nontender, no megaly, no rebound, no guarding, positive bowel sounds. Extremities: No clubbing, no edema, no cyanosis, 2+ pulses in upper and lower extremities. Musculoskeletal: Muscle strength and tone normal. Neurologic: Alert and oriented 3, normal affect, no focal neurologic deficits. Examination of the skin revealed no evidence of significant rashes, suspicious appearing nevi or other concerning lesions. Results - Laboratory Findings CBC and BMP: 01/14/18 13:25 01/14/18 13:25 PT/INR, D-dimer PT 10.2 sec (9.0-12.0) 01/14/18 13:25 INR 1.0 (<1.2) 01/14/18 13:25 Abnormal lab findings: Abnormal Labs 01/14/18 01/14/18 01/14/18 13:25 13:25 13:25 Hct 48.6 H Neutrophils # 8.4 H Lymphocytes # 0.7 L Chloride 96 L Carbon Dioxide 33 H BUN 46 H Glucose 132 H POC Glucose (mg/dL) Calcium 10.3 H Troponin I 0.039 H* Total Protein 8.3 H 01/15/18 01/15/18 05:55 11:41 Hct Neutrophils # Lymphocytes # Chloride Carbon Dioxide BUN Glucose POC Glucose (mg/dL) 139 H 350 H Calcium Troponin I Total Protein - Diagnostic Findings Chest x-ray: image reviewed Assessment and Plan Plan: Assessment 1 severe end-stage pulmonary fibrosis, UIP pathology, maintained and treated with Pirfenidone on outpatient basis, yet based on the most recent CAT scan findings the patient has developed progressive worsening pulmonary fibrosis along with honeycombing and traction bronchiectasis. 2 severe hypoxic respiratory failure currently on 4 liters oxygen nasal cannula 3 chronic exertional dyspnea secondary to above 4 chronic cough secondary to above 5 abnormal weight loss secondary to above 6 hypertension 7 hypothyroidism 8 hyperlipidemia 9 hiatal hernia 10 coronary artery disease with previous coronary stenting in 2009 Plan This patient's disease is end-stage. The patient obviously will not recover from her condition. Anticipate progressive worsening her shortness of breath and hypoxemic respiratory failure related to her progressive pulmonary fibrosis. The patient is currently at a condition where she is unable to take care of herself and she may be a good candidate for half-way placement and she needs to consider also hospice care in the future. The patient is on oxygen at 4 L. She was subjected to IV Solu-Medrol although the benefit of Solu -Medrol objectively is limited in this condition. Continue the bronchodilators. Case management for placement recommendations. Outpatient medication will resume. Prognosis poor. We'll continue to follow.
[2018-01-15 17:27] LABS: Glucose,Whole Blood 306 mg/dL (75-99)
[2018-01-15] MEDS: MAGNESIUM OXIDE 400 MG TAB PO SCH (17:56)
[2018-01-15 20:40] LABS: Glucose,Whole Blood 395 mg/dL (75-99)
[2018-01-15] MEDS ORDERED: INSULIN ASPART 100 UNIT/ML 1 ML 10 ML VIAL SQ ONE (21:00)
[2018-01-15] MEDS ORDERED: INSULIN DETEMIR 100 UNIT/ML 10 ML VIAL SQ ONE (21:00)
--- NOTE | 2018-01-15 21:49 | PN ---
PROGRESS NOTE DATE OF SERVICE: 01/15/2018. PRESENTING COMPLAINT: Short of breath. INTERVAL HISTORY: This patient with advanced end-stage UIP -- pulmonary fibrosis -- on steroids, remains short of breath at rest, eating small amounts, tired. REVIEW OF SYSTEMS: Done for constitutional, cardiovascular, GI, pulmonary; relevant findings as above. CURRENT MEDICATIONS: Current medications include IV Solu-Medrol. PHYSICAL EXAMINATION: Temperature 97.9, pulse 100, respiration 18, blood pressure 105/63, pulse ox 95% on 4 L. GENERAL APPEARANCE: Sitting up in bed, tired-appearing. EYES: Pupils equal. Conjunctivae pale. HEENT: External appearance of nose and ears normal. Oral cavity normal. NECK: JVD not raised. Mass not palpable. RESPIRATORY: Effort increased. Accessory muscles are working. Bilateral crackles. CARDIOVASCULAR: First and second sounds normal. No edema. ABDOMEN: Soft, nontender. Liver and spleen not palpable. PSYCHIATRY: Awake, answering simple questions. INVESTIGATIONS: Accu-Cheks noted at 139, 350, 306. ASSESSMENT: 1. Acute on chronic exacerbation of UIP/pulmonary fibrosis, end-stage, slow to respond. 2. Chronic hypoxic respiratory failure from above. 3. Acute hypoxic respiratory failure from above. 4. Coronary artery disease with prior history of stent. 5. Primary osteoarthritis in multiple joints bilaterally. 6. Essential hypertension. 7. Hyperlipidemia. 8. Frailty due to multiple medical problems. 9. Troponin leak, likely from hemodynamic. PLAN: As I understood, patient's condition is rather advanced. Hospice in the new future would be appropriate. Did speak to the patient and also spoke to patient's , who is also admitted to my service on a different floor. MMODL / IJN: [id number] /
[2018-01-16 02:15] LABS: Glucose,Whole Blood 205 mg/dL (75-99)
[2018-01-16] MEDS: MENTHOL-ZINC OXIDE OINT 113 GM TUBE TOPICAL SCH ×5 (03:09→21:12)
[2018-01-16] MEDS: INSULIN ASPART 100 UNIT/ML 1 ML 10 ML VIAL SQ SCH ×4 (06:43→21:12)
[2018-01-16] MEDS: LEVOTHYROXINE 100 MCG TAB PO SCH (06:43)
[2018-01-16 07:01] LABS: Glucose,Whole Blood 142 mg/dL (75-99)
[2018-01-16] MEDS: IPRATROPIUM-ALBUTEROL 3 ML NEB INHALATION SCH ×4 (08:13→21:08)
[2018-01-16] MEDS: cycloSPORINE 0.05% OPHTH 0.4 ML DROPERETTE BOTH EYES SCH ×2 (08:40→21:12)
[2018-01-16] MEDS: ENOXAPARIN 40 MG/0.4 ML SYRINGE SQ SCH (08:40)
[2018-01-16] MEDS ORDERED: methylPREDNISolone SOD SUCCI 40 MG/ML 1 ML VIAL IV SCH (09:00)
--- NOTE | 2018-01-16 10:02 | CDI ---
Last Revision, August 2017 Documentation Clarification Form Date: 01/06/18 09:59 am From: Rhonda Gates Admit Date: 01/14/2018 3:18:00 PM Patient Name: Tanya Omalley Visit Number: [id number] ATTENTION: The Clinical Documentation Specialists (CDI) and [facility] Coding Staff appreciate your assistance in clarifying documentation. Please respond to the clarification below the line at the bottom and electronically sign. The CDI & [facility] Coding staff will review the response and follow-up if needed. Please note: Queries are made part of the Legal Health Record. If you have any questions, please contact the author of this message via ITS. Dr. Zohaib Brito, Heart Failure has been documented in the progress notes on 01/14 and 01/15 Patient has a documented history of Hypertension and Kidney cancer Presented to hospital with shortness of breath History/Risk Factors: htn, hyperlipidemia, oa, cad, home o2 4l, pulmonary fibrosis, chronic hypoxic respiratory failure, osteoporosis, stents Clinical indicators: Labs on admission:HCT 48.6, NEUTR 8.4, LYMP 0.7, CHL 96, C02 33, BUN 46, DARYA 10.3, TROP 0.039-0.030-0.032, TOT PRO 8.3 Treatment: Monitor labs cardiology consult Please clarify the relationship between CHF and Hypertension: Congestive Heart Failure due to Hypertensive Heart Disease Congestive Heart Failure due to Hypertensive Heart Disease with CKD, please stage No relationship Other, please specify Unable to determine Please continue to document in your progress notes , under the line below and/ or in the discharge summary in order to capture severity of illness and risk of mortality. Include clinical findings that support your diagnosis. MTDD
[2018-01-16 12:17] LABS: Glucose,Whole Blood 156 mg/dL (75-99)
--- NOTE | 2018-01-16 13:26 | P.PN ---
Subjective Progress Note Date: 01/16/18 This is an 85-year-old female patient with known history of severe pulmonary fibrosis, UIP, treated with Pirfenedone, who has been developing progressive worsening in her pulmonary fibrosis and this was clear noted on recent evaluation recent CAT scan of the chest. The patient has UIP histology along with chronic honeycombing and traction bronchiectasis. She also has a hiatal hernia noted on previous CAT scans. The patient has been followed up in our office on a care of Dr. Darden. She has chronic hypoxic respiratory failure and oxygen requirements progressively have been going up and she is currently on 4 of oxygen nasal cannula. The patient was getting progressive shortness of breath or point where she was unable to perform activities of daily life. She lives with her children and her is currently also ill. She was also being considered for senior living placement knowing that she is at a condition where she cannot perform activities of daily today life without any help or assistance. She gets short of breath with limited amount of activity. She is also short of breath at rest. She has been losing weight and she recently she has lost approximately 12-15 pounds over the past 6 months. She has not been eating much. She continues to have shortness of breath and she is very much oxygen dependent. She is also on a low-dose prednisone 10 mg on a daily basis. No recent pneumonias. No altered mentation. No angina. No swelling lower extremities. CAT scan of the chest from November 2017 shows extensive honeycombing suggestive of advanced pulmonary fibrosis with chronic lung disease showing progression from the last examination. On 01/16/2018, I'm seeing this patient for a follow-up. She is more comfortable compared to yesterday. This is her second day of hospitalization. Were looking into long-term placement for this patient has advanced pulmonary fibrosis and her disease and stage IV now. No chest pain. No cough or sputum production pH is tolerating her diet. No nausea or vomiting. She remains on a combination of bronchodilators and systemic steroids. The Solu-Medrol has been tapered down to 40 mg every 12 hours and the blood sugar is under better control for now. Objective - Vital Signs Vital signs: Vital Signs Temp 97.6 F 01/16/18 08:35 Pulse 100 01/16/18 13:18 Resp 22 01/16/18 08:35 BP 124/64 01/16/18 08:35 Pulse Ox 96 01/16/18 08:35 Intake & Output 01/15/18 01/16/18 01/16/18 18:59 06:59 18:59 Intake Total 942 100 Output Total 200 300 Balance 742 -200 Weight 40.597 kg 89 kg Intake: Oral 942 100 Output: Urine 200 300 Other: Voiding Method Diaper Diaper Diaper Incontinent Incontinent Incontinent # Voids 2 1 # Bowel Movements 1 - Exam Physical examination revealed an 87-year-old female, frail looking, in mild respiratory distress. She looks very frail and cachectic and weak and she has significant loss in total body protein mass HEENT: Anicteric sclerae, pink and moist conjunctivae. Extraocular movements intact, pupils are reactive to light they are round and equal. External inspection of ears and nose showed normal mucosa. Oral mucosa, soft and hard palate tongue and posterior pharynx are intact. Neck: Supple no neck masses, no JVD, no thyroid enlargement, no adenopathy. Lungs: Symmetrical expansion, Velcro rales and crackles at the bases CVS: Regular rate and rhythm, normal S1 and S2, no gallops, no murmur, no rubs. Abdomen: Soft, nontender, no megaly, no rebound, no guarding, positive bowel sounds. Extremities: No clubbing, no edema, no cyanosis, 2+ pulses in upper and lower extremities. Musculoskeletal: Muscle strength and tone normal. Neurologic: Alert and oriented 3, normal affect, no focal neurologic deficits. Examination of the skin revealed no evidence of significant rashes, suspicious appearing nevi or other concerning lesions. - Labs CBC & Chem 7: 01/14/18 13:25 01/14/18 13:25 Labs: Abnormal Lab Results - Last 24 Hours (Table) 01/15/18 01/15/18 01/16/18 Range/Units 17:07 20:38 02:12 POC Glucose (mg/dL) 306 H 395 H 205 H (75-99) mg/dL 01/16/18 01/16/18 Range/Units 06:36 11:56 POC Glucose (mg/dL) 142 H 156 H (75-99) mg/dL Assessment and Plan Plan: Assessment 1 severe end-stage pulmonary fibrosis, UIP pathology, maintained and treated with Pirfenidone on outpatient basis, yet based on the most recent CAT scan findings the patient has developed progressive worsening pulmonary fibrosis along with honeycombing and traction bronchiectasis. 2 severe hypoxic respiratory failure currently on 4 liters oxygen nasal cannula 3 chronic exertional dyspnea secondary to above 4 chronic cough secondary to above 5 abnormal weight loss secondary to above 6 hypertension 7 hypothyroidism 8 hyperlipidemia 9 hiatal hernia 10 coronary artery disease with previous coronary stenting in 2009 Plan This patient's disease is end-stage. We'll continue the supportive care. We' ll looking for placement for this patient. Meanwhile gradually wean down the Solu-Medrol and has this patient to a prednisone burst taper over the next 24 hours. Her sugars under better control. Patient is eating. She seems to be comfortable for now. She can be transferred to a medical floor
[2018-01-16] MEDS: MEGESTROL 400 MG/10 ML CUP PO SCH (14:12)
[2018-01-16 16:47] LABS: Glucose,Whole Blood 302 mg/dL (75-99)
[2018-01-16] MEDS: MAGNESIUM OXIDE 400 MG TAB PO SCH (17:18)
--- NOTE | 2018-01-16 17:47 | PN ---
PROGRESS NOTE DATE OF SERVICE: 01/16/18. PRESENTING COMPLAINT: Short of breath. INTERVAL HISTORY: This is a patient with advanced end-stage UIP, pulmonary fibrosis on steroids. Remains short of breath. Eating some meals, pretty much bed bound. I spoke to social sciences professor, has a place for tomorrow. REVIEW OF SYSTEMS: Done for constitutional, cardiovascular, GI, pulmonary; relevant findings as above. CURRENT MEDICATIONS: Include IV Solu-Medrol. PHYSICAL EXAMINATION: Afebrile, pulse 110, respiration 22, blood pressure 124/64, pulse ox 96% on 4 L. GENERAL APPEARANCE: Sitting up in bed, tired appearing. EYES: Pupils equal. Conjunctivae normal. HEENT: External appearance of nose and ears normal. Oral cavity normal. NECK: JVD not raised. Mass not palpable. RESPIRATORY: Effort increased, accessory muscles are working. Bilateral crackles. CARDIOVASCULAR: First and second sounds normal. No edema. ABDOMEN: Soft, nontender. Liver and spleen not palpable. PSYCHIATRY: Alert and oriented x3. Mood and affect anxious-appearing. INVESTIGATIONS: Accu-Cheks noted. ASSESSMENT: 1. Acute on chronic exacerbations UIP/pulmonary fibrosis, end-stage, slow to respond. 2. Chronic hypoxic respiratory failure from above. 3. Acute hypoxic respiratory failure from above. 4. Coronary artery disease prior history of stent. 5. Primary osteoarthritis in multiple joints bilaterally. 6. Essential hypertension. 7. Hyperlipidemia. 8. Frailty due to multiple medical problems. 9. Troponin leak likely from hemodynamic mismatch. PLAN: Looking at the patient to be discharged tomorrow. We will switch the patient over to oral prednisone. Prognosis is poor. MMODL / IJN: [id number] /
[2018-01-16 20:43] LABS: Glucose,Whole Blood 240 mg/dL (75-99)
[2018-01-17 06:05] LABS: Glucose,Whole Blood 99 mg/dL (75-99)
[2018-01-17] MEDS: LEVOTHYROXINE 100 MCG TAB PO SCH (06:24)
[2018-01-17] MEDS: INSULIN ASPART 100 UNIT/ML 1 ML 10 ML VIAL SQ SCH ×3 (06:25→17:30)
[2018-01-17] MEDS: cycloSPORINE 0.05% OPHTH 0.4 ML DROPERETTE BOTH EYES SCH (07:48)
[2018-01-17] MEDS: ENOXAPARIN 40 MG/0.4 ML SYRINGE SQ SCH (07:49)
[2018-01-17] MEDS: MENTHOL-ZINC OXIDE OINT 113 GM TUBE TOPICAL SCH ×2 (07:49→12:33)
[2018-01-17] MEDS ORDERED: predniSONE 20 MG TAB PO SCH (09:00)
[2018-01-17] MEDS: IPRATROPIUM-ALBUTEROL 3 ML NEB INHALATION SCH ×3 (09:07→16:01)
--- NOTE | 2018-01-17 11:57 | DS ---
DISCHARGE SUMMARY DATE OF ADMISSION: 01/14/2018. DATE OF DISCHARGE: 01/17/2018 FINAL DIAGNOSES: 1. Acute on chronic end-stage UIP/pulmonary fibrosis, slow to respond. 2. Chronic hypoxic respiratory failure from pulmonary fibrosis. 3. Acute hypoxic respiratory failure from exacerbation of pulmonary fibrosis. 4. Coronary artery disease with prior history of stent. 5. Primary osteoarthritis in multiple joints bilaterally. 6. Essential hypertension. 7. Hyperlipidemia. 8. Frailty due to multiple medical problems. 9. Troponin leak, likely from hemodynamic mismatch. HOSPITAL COURSE: This patient with advanced UIP/pulmonary fibrosis presented with worsening shortness of breath. She was put on high-dose steroids. Prognosis is poor. She was seen by Pulmonary. Patient at baseline remains short of breath. Eating small amounts. The patient will be transferred to the [facility]. Patient eventually then will need hospice. On examination, patient is short of breath at rest with bilateral crackles. PSYCH: Alert and oriented x3. DISCHARGE MEDICATIONS: 1. Vitamin D3 1000 units p.o. daily. 2. Levoxyl 100 mcg p.o. daily. 3. Magnesium oxide 400 mg with supper. 4. Calmoseptine 1 application topically q.i.d. 5. Aleve 220 mg b.i.d. p.r.n. 6. Pulmocare 180 mL before meals t.i.d. 7. Cyclosporine 0.05 one drop both eyes b.i.d. 8. Xanax 0.25 p.o. q.6 p.r.n. 9. DuoNeb q.i.d. plus q.2 p.r.n. 10.Megace 400 mg p.o. daily. 11.Melatonin 3 mg at bedtime p.r.n. 12.Prednisone 20 mg a day. 13.Oxygen 4 L for comfort. DISPOSITION: [facility]. The patient's daughter is the POA. CONSULTATIONS: 1. Dr. Brito from Cardiology. 2. Dr. Salgado from Pulmonary. MMODL / BILLN: [id number] /
[2018-01-17 11:59] LABS: Glucose,Whole Blood 227 mg/dL (75-99)
[2018-01-17] MEDS: MEGESTROL 400 MG/10 ML CUP PO SCH (12:32)
--- NOTE | 2018-01-17 15:38 | P.PN ---
Subjective Progress Note Date: 01/17/18 This is an 85-year-old female patient with known history of severe pulmonary fibrosis, UIP, treated with Pirfenedone, who has been developing progressive worsening in her pulmonary fibrosis and this was clear noted on recent evaluation recent CAT scan of the chest. The patient has UIP histology along with chronic honeycombing and traction bronchiectasis. She also has a hiatal hernia noted on previous CAT scans. The patient has been followed up in our office on a care of Dr. Darden. She has chronic hypoxic respiratory failure and oxygen requirements progressively have been going up and she is currently on 4 of oxygen nasal cannula. The patient was getting progressive shortness of breath or point where she was unable to perform activities of daily life. She lives with her children and her is currently also ill. She was also being considered for senior living placement knowing that she is at a condition where she cannot perform activities of daily today life without any help or assistance. She gets short of breath with limited amount of activity. She is also short of breath at rest. She has been losing weight and she recently she has lost approximately 12-15 pounds over the past 6 months. She has not been eating much. She continues to have shortness of breath and she is very much oxygen dependent. She is also on a low-dose prednisone 10 mg on a daily basis. No recent pneumonias. No altered mentation. No angina. No swelling lower extremities. CAT scan of the chest from November 2017 shows extensive honeycombing suggestive of advanced pulmonary fibrosis with chronic lung disease showing progression from the last examination. On 01/16/2018, I'm seeing this patient for a follow-up. She is more comfortable compared to yesterday. This is her second day of hospitalization. Were looking into long-term placement for this patient has advanced pulmonary fibrosis and her disease and stage IV now. No chest pain. No cough or sputum production pH is tolerating her diet. No nausea or vomiting. She remains on a combination of bronchodilators and systemic steroids. The Solu-Medrol has been tapered down to 40 mg every 12 hours and the blood sugar is under better control for now. On I'm seeing this patient for a follow-up. Her condition essentially the same. Therefore fibrosis advanced and end-stage and the patient is being discharged to [facility] home. I think she will fare poorly in general. She was taken off the IV Solu-Medrol and she is on a prednisone burst taper starting with 40 mg. She has a minute downtime milligrams on outpatient basis. She is on oxygen at 4 L. Respiratory medications are unchanged. He is tolerating her diet. She is very much agreeable to go and the patient can be released from the pulmonary standpoint. Objective - Vital Signs Vital signs: Vital Signs Temp 97 F L 01/17/18 12:00 Pulse 107 H 01/17/18 12:00 Resp 22 01/17/18 12:00 BP 115/70 01/17/18 12:00 Pulse Ox 100 01/17/18 12:00 Intake & Output 01/16/18 01/17/18 01/17/18 18:59 06:59 18:59 Intake Total 620 10 720 Output Total 800 Balance 620 -790 720 Intake: IV 10 0.9 10 Oral 620 720 Output: Urine 800 Other: Voiding Method Diaper Bedpan Bedpan Incontinent Diaper Diaper Incontinent Incontinent # Voids 1 - Exam Physical examination revealed an 87-year-old female, frail looking, in mild respiratory distress. She looks very frail and cachectic and weak and she has significant loss in total body protein mass HEENT: Anicteric sclerae, pink and moist conjunctivae. Extraocular movements intact, pupils are reactive to light they are round and equal. External inspection of ears and nose showed normal mucosa. Oral mucosa, soft and hard palate tongue and posterior pharynx are intact. Neck: Supple no neck masses, no JVD, no thyroid enlargement, no adenopathy. Lungs: Symmetrical expansion, Velcro rales and crackles at the bases CVS: Regular rate and rhythm, normal S1 and S2, no gallops, no murmur, no rubs. Abdomen: Soft, nontender, no megaly, no rebound, no guarding, positive bowel sounds. Extremities: No clubbing, no edema, no cyanosis, 2+ pulses in upper and lower extremities. Musculoskeletal: Muscle strength and tone normal. Neurologic: Alert and oriented 3, normal affect, no focal neurologic deficits. Examination of the skin revealed no evidence of significant rashes, suspicious appearing nevi or other concerning lesions. - Labs CBC & Chem 7: 01/14/18 13:25 01/14/18 13:25 Labs: Abnormal Lab Results - Last 24 Hours (Table) 01/16/18 01/16/18 01/17/18 Range/Units 16:44 20:40 11:38 POC Glucose (mg/dL) 302 H 240 H 227 H (75-99) mg/dL Assessment and Plan Plan: Assessment 1 severe end-stage pulmonary fibrosis, UIP pathology, maintained and treated with Pirfenidone on outpatient basis, yet based on the most recent CAT scan findings the patient has developed progressive worsening pulmonary fibrosis along with honeycombing and traction bronchiectasis. Condition is stable and the patient is currently on a prednisone burst taper. 2 severe hypoxic respiratory failure currently on 4 liters oxygen nasal cannula 3 chronic exertional dyspnea secondary to above 4 chronic cough secondary to above 5 abnormal weight loss secondary to above 6 hypertension 7 hypothyroidism 8 hyperlipidemia 9 hiatal hernia 10 coronary artery disease with previous coronary stenting in 2008 Plan This patient's disease is end-stage. We'll continue the supportive care. Transfer this patient to [facility] today.
[2018-01-17 15:54] VITALS: BP 119/71; RESP 20; TEMP 97.4
[2018-01-17 16:16] VITALS: PULSE 112
[2018-01-17 17:21] LABS: Glucose,Whole Blood 215 mg/dL (75-99)
[2018-01-17] MEDS: MAGNESIUM OXIDE 400 MG TAB PO SCH (17:30)
--- NOTE | 2018-01-19 07:57 | CDI ---
Last Revision, August 2017 Documentation Clarification Form Date: 01/19/18 From: Rhonda Gates Admit Date: 01/14/2018 3:18:00 PM Patient Name: Tanya Omalley Visit Number: [id number] Discharge Date: 01/17/18 ATTENTION: The Clinical Documentation Specialists (CDI) and [facility] Coding Staff appreciate your assistance in clarifying documentation. Please respond to the clarification below the line at the bottom and electronically sign. The CDI & [facility] Coding staff will review the response and follow-up if needed. Please note: Queries are made part of the Legal Health Record. If you have any questions, please contact the author of this message via ITS. Dr. Zohaib Brito, Heart Failure has been documented in the progress notes on 01/14 and 01/15 Patient has a documented history of Hypertension and Kidney cancer Presented to hospital with shortness of breath History/Risk Factors: htn, hyperlipidemia, oa, cad, home o2 4l, pulmonary fibrosis, chronic hypoxic respiratory failure, osteoporosis, stents Clinical indicators: Labs on admission:HCT 48.6, NEUTR 8.4, LYMP 0.7, CHL 96, C02 33, BUN 46, DARYA 10.3, TROP 0.039-0.030-0.032, TOT PRO 8.3 Treatment: Monitor labs cardiology consult Please clarify the relationship between CHF and Hypertension and specificity of chf: Congestive Heart Failure due to Hypertensive Heart Disease Congestive Heart Failure due to Hypertensive Heart Disease with CKD, please stage No relationship Other, please specify Unable to determine Please continue to document in your progress notes, under the line below and discharge summary in order to capture severity of illness and risk of mortality. Include clinical findings that support your diagnosis. MTDD
--- NOTE | 2018-01-20 08:06 | CDI ---
Last Revision, August 2017 Documentation Clarification Form Date: 01/06/18 From: Rhonda Gates Admit Date: 01/14/2018 3:18:00 PM Patient Name: Tanya Omalley Visit Number: [id number] Discharge Date: 01/17/18 ATTENTION: The Clinical Documentation Specialists (CDI) and [facility] Coding Staff appreciate your assistance in clarifying documentation. Please respond to the clarification below the line at the bottom and electronically sign. The CDI & [facility] Coding staff will review the response and follow-up if needed. Please note: Queries are made part of the Legal Health Record. If you have any questions, please contact the author of this message via ITS. Dr. Zohaib Brito, Heart Failure has been documented in the progress notes on 01/14 and 01/15 Patient has a documented history of Hypertension and Kidney cancer Presented to hospital with shortness of breath History/Risk Factors: htn, hyperlipidemia, oa, cad, home o2 4l, pulmonary fibrosis, chronic hypoxic respiratory failure, osteoporosis, stents Clinical indicators: Labs on admission:HCT 48.6, NEUTR 8.4, LYMP 0.7, CHL 96, C02 33, BUN 46, DARYA 10.3, TROP 0.039-0.030-0.032, TOT PRO 8.3 Treatment: Monitor labs cardiology consult Please clarify the relationship between CHF and Hypertension: Congestive Heart Failure due to Hypertensive Heart Disease Congestive Heart Failure due to Hypertensive Heart Disease with CKD, please stage No relationship Other, please specify Unable to determine Please continue to document in your progress notes, under the line below and/or in the discharge summary in order to capture severity of illness and risk of mortality. Include clinical findings that support your diagnosis. MTDD
== END 2018-01-17 19:25 | DRG 196 ==
LOC: EC 12:54 → 6SEL 15:18
PROVIDERS: ADMIT Hospitalist; ATTEND Hospitalist
DX: J84.10 Pulmonary fibrosis, unspecified (principal); E43 Unspecified severe protein-calorie malnutrition; J96.21 Acute and chronic respiratory failure with hypoxia; E84.9 Cystic fibrosis, unspecified; Z68.1 Body mass index [BMI] 19.9 or less, adult; J84.17 Other interstitial pulmonary diseases with fibrosis in diseases classified elsewhere; I11.0 Hypertensive heart disease with heart failure; I50.9 Heart failure, unspecified; Z99.81 Dependence on supplemental oxygen; E78.5 Hyperlipidemia, unspecified; I25.10 Atherosclerotic heart disease of native coronary artery without angina pectoris; J47.9 Bronchiectasis, uncomplicated; K21.9 Gastro-esophageal reflux disease without esophagitis; K44.9 Diaphragmatic hernia without obstruction or gangrene; M15.9 Polyosteoarthritis, unspecified; M41.9 Scoliosis, unspecified; M81.0 Age-related osteoporosis without current pathological fracture; R32 Unspecified urinary incontinence; R77.8 Other specified abnormalities of plasma proteins; E89.0 Postprocedural hypothyroidism; Z95.5 Presence of coronary angioplasty implant and graft; Z90.710 Acquired absence of both cervix and uterus; Z66 Do not resuscitate; Z96.651 Presence of right artificial knee joint; Z79.890 Hormone replacement therapy; Z79.52 Long term (current) use of systemic steroids; Z79.899 Other long term (current) drug therapy; Z91.040 Latex allergy status; Z88.0 Allergy status to penicillin; Z91.048 Other nonmedicinal substance allergy status; Z98.42 Cataract extraction status, left eye; Z98.41 Cataract extraction status, right eye; Z80.51 Family history of malignant neoplasm of kidney
CPT/HCPCS: 36415; 71046; 80053; 83735; 83880; 84484; 85025; 85610; 85730; 93005; 94640; 94760; 99285